=== PATIENT | female | born 2000 | race African-American/Black ===

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

== ENCOUNTER 2021-08-13 17:40 | Emergency (ER) | payer OTHER, SELFPAY ==
--- NOTE | ~2021-08-13 | CT_ITS ---
EXAMINATION: CT ABDOMEN AND PELVIS WITHOUT CONTRAST CLINICAL INFORMATION: Left lower quadrant abdominal pain. Evaluate for diverticulitis. COMPARISON: Pelvic ultrasound dated 11/24/2020. TECHNIQUE: Multidetector volumetric imaging was performed from the superior aspect of the liver through the pubic symphysis. Sagittal and coronal reformatted images were obtained on the technologist's workstation. This CT examination was performed using dose optimization techniques as appropriate, variously including the following: *Automated exposure control. *Adjustment of mA and/or kV according to patient size (this includes techniques or standardized protocols for targeted exams where dose is matched to indication/reason for exam; i.e. extremities or head). *Use of iterative reconstruction technique. DLP: 1047 mGy-cm FINDINGS: LUNG BASES: The visualized lung bases are unremarkable. LIVER, GALLBLADDER, AND BILIARY TREE: The liver is normal in size, shape, and attenuation. No focal hepatic lesion or biliary ductal dilatation is present. The gallbladder is unremarkable with no evidence of radiopaque gallstones, gallbladder wall thickening, or obvious pericholecystic inflammatory changes. PANCREAS: Unremarkable. SPLEEN: Unremarkable. ADRENAL GLANDS: Unremarkable. KIDNEYS AND URETERS: The kidneys are normal in size, shape, and attenuation. No hydronephrosis, hydroureter, or calculi seen. No perinephric stranding. BLADDER: Nondistended and unremarkable. GASTROINTESTINAL TRACT: There is minimal focal stranding anterior to the left lower quadrant descending colon (axial image 63/99, coronal image 29/80). No associated bowel wall thickening. Findings could represent mild epiploic appendagitis. No small or large bowel obstruction. Unremarkable appendix. PERITONEAL CAVITY: No intra-abdominal free air or free fluid. No intra-abdominal mass or organized fluid collection/abscess formation. ABDOMINAL WALL: No significant hernia is appreciated. LYMPH NODES: Normal. VASCULAR: Unremarkable. PELVIC VISCERA: There is a cyst anterior and inferior to the uterus which appears to arise from the left adnexa measuring 7.5 x 6.5 x 5.9 cm. This measures 9 Hounsfield units and is consistent with a simple cyst. OSSEOUS STRUCTURES: Unremarkable. CT/CT abdomen pelvis wo con IMPRESSION: 1. Tiny focus of stranding anterior to the left lower quadrant descending colon, which may represent minimal epiploic appendagitis. 2. No bowel wall thickening or associated inflammatory change. No small or large bowel obstruction. Unremarkable appendix. 3. Simple cyst anterior and inferior to the uterus which appears to arise from the left adnexa measuring up to 7.5 cm. This was not seen on the ultrasound dated 11/24/2020. [employer] FOUND[employer] DIRECTOR ultrasound could help further evaluate.
--- NOTE | ~2021-08-13 | US_ITS ---
EXAMINATION: US PELVIS CLINICAL INFORMATION: Large ovarian cyst COMPARISON: CT abdomen pelvis earlier today and prior pelvic ultrasound 11/24/2019 TECHNIQUE: Ultrasound of the pelvis is performed using both transabdominal and transvaginal transducers along with Doppler. Transvaginal imaging is performed due to inadequate visualization transabdominally. FINDINGS: Uterus: The uterus is anteverted and anteflexed, measuring 8.9 x 4.8 x 6.1 cm. The double wall endometrial thickness is 12 mm. The uterus is smooth in contour and has normal myometrial echogenicity. No visible fibroid. Adnexa: Both ovaries are visualized. There is normal color flow to the adnexa. There is no ovarian torsion. There is no pelvic ascites or fluid collection. Right ovary measures 3.7 x 1.3 x 1.7 cm for a volume of 4.3 mL and appears normal. Left ovary measures 7.5 x 6.2 x 6.7 cm for a volume of 163 mL which includes a large simple cyst measuring 6.8 x 6.0 x 6.0 cm. Trace pelvic fluid is noted adjacent to this cyst. US/US pelvic and transvaginal IMPRESSION: Large left ovarian probable benign 6.8 cm cyst. A follow-up ultrasound exam in 3-6 months
[2021-08-13 18:23] VITALS: BP 124/96; PULSE 105; RESP 20; TEMP 36.8; O2SAT 98; BMI 45.1
--- NOTE | 2021-08-13 20:22 | ED_ITS ---
HPI - Abdominal Pain General Chief Complaint: Abdominal Pain Stated Complaint: lower abd pain Time Seen by Provider: 08/13/21 20:21 Source: patient Mode of arrival: ambulatory Limitations: no limitations History of Present Illness HPI narrative: Patient history of left paraovarian cyst in ultrasound done 12/05 comes here for 1 month of left lower abdominal pain getting worse for last few days no nausea no vomiting no diarrhea no fever no urinary complaints pain get worse for pain patient ambulates or press on her left lower abdomen Related Data Previous Rx's Medication Instructions Recorded escitalopram oxalate 5 mg tablet 5 mg PO DAILY 30 Days #30 tab 07/21/21 ibuprofen 600 mg tablet 600 mg PO Q6H PRN #20 tab 08/14/21 Allergies Allergy/AdvReac Type Severity Reaction Status Date / Time No Known Allergies Allergy Verified 07/21/21 17:28 [No Known Allergies*] Review of Systems Review of Systems Yes all other systems are reviewed and are negative Physical Exam Vital Signs: Vital Signs: Last Vital Signs Temp 98.4 F 08/13/21 21:52 Pulse 93 08/14/21 00:34 Resp 16 08/14/21 00:34 BP 124/74 08/14/21 00:34 Pulse Ox 97 08/14/21 00:00 Body Mass Index 45.1 Appearance: Alert. Oriented X3. No acute distress. ENT: Pharynx normal. Oral Mucosa moist Neck: Normal inspection. Neck supple. CVS: Normal heart rate and rhythm. Pulses normal. Respiratory: No respiratory distress. Equal air entry bilateral, Abdomen: Soft, mild deep tenderness left lower quadrant, Bowel sounds are present, no mass palpable, no CVA tenderness Skin: Skin warm and dry. Normal skin color. Normal skin turgor. Extremities: No lower extremity edema. No calf tenderness Neuro: Oriented X 3. No motor deficit. MDM - Abdominal Pain MDM Narrative Medical decision making narrative: Patient with 6.8 cm simple left ovarian cyst no ovarian torsion per Doppler. Patient advised to follow-up with athletic instructor next week for further management Lab Data Attestation: I reviewed the patient's lab results. Result diagrams: 08/13/21 21:48 08/13/21 21:48 Labs: Lab Results 08/13/21 08/13/21 08/13/21 Range/Units 21:14 21:14 21:48 WBC 12.6 H (4.8-10.8) X10*3/uL RBC 4.80 (4.20-5.50) X10*6/uL Hgb 13.0 (12.0-16.0) g/dl Hct 38.6 (37.0-47.0) % MCV 80.4 (80.0-98.0) fL MCH 27.1 (27.0-33.0) pg MCHC 33.7 (31.0-35.0) g/dl RDW 14.5 (11.0-16.0) % Plt Count 324 (160-400) X10*3/uL MPV 9.4 (9.4-12.3) fL Immature Gran % (Auto) 0.2 (0.0-0.4) % Neut % (Auto) 63.7 (45-73) % Lymph % (Auto) 28.4 (20-40) % Parmer % (Auto) 6.4 (2-11) % Eos % (Auto) 0.9 (0-4) % Baso % (Auto) 0.4 (0-2) % Lymph # (Auto) 3.6 (1.2-4.9) X10*3/uL Parmer # (Auto) 0.8 (0.1-1.2) X10*3/uL Eos # (Auto) 0.1 (0.0-0.4) X10*3/uL Baso # (Auto) 0.1 (0.0-0.2) X10*3/uL Abs Immat Gran (auto) 0.03 (0.00-0.03) X10*3/uL Absolute Neuts (auto) 8.04 (2.0-8.3) x10*3/uL Absolute Nucleated RBC 0.000 (0.0-0.012) X10*3/uL Nucleated RBC % (auto) 0.0 (0.0-0.2) /100WBC Sodium (135-145) mmol/L Potassium (3.3-5.1) mmol/L Chloride (96-108) mmol/L Carbon Dioxide (22-29) mmol/L Anion Gap (12-20) BUN (9-16) mg/dL Creatinine (0.5-1.4) mg/dL Estim Creat Clear Calc Estimated GFR Random Glucose (60-115) mg/dL Calcium (8.4-10.2) mg/dL Urine Color YELLOW Urine Appearance CLEAR Urine pH 6.0 (5.0-8.0) Ur Specific [place] >= 1.030 H (1.005-1.025) Urine Protein NEG (NEG-TRACE) MG/DL Urine Glucose (UA) NEG (NEG) MG/DL Urine Ketones NEG (NEG) MG/DL Urine Blood NEG (NEG) Urine Nitrite NEG (NEG) Ur Leukocyte Esterase NEG (NEG) Urine Test NEGATIVE (NEGATIVE) 08/13/21 Range/Units 21:48 WBC (4.8-10.8) X10*3/uL RBC (4.20-5.50) X10*6/uL Hgb (12.0-16.0) g/dl Hct (37.0-47.0) % MCV (80.0-98.0) fL MCH (27.0-33.0) pg MCHC (31.0-35.0) g/dl RDW (11.0-16.0) % Plt Count (160-400) X10*3/uL MPV (9.4-12.3) fL Immature Gran % (Auto) (0.0-0.4) % Neut % (Auto) (45-73) % Lymph % (Auto) (20-40) % Parmer % (Auto) (2-11) % Eos % (Auto) (0-4) % Baso % (Auto) (0-2) % Lymph # (Auto) (1.2-4.9) X10*3/uL Parmer # (Auto) (0.1-1.2) X10*3/uL Eos # (Auto) (0.0-0.4) X10*3/uL Baso # (Auto) (0.0-0.2) X10*3/uL Abs Immat Gran (auto) (0.00-0.03) X10*3/uL Absolute Neuts (auto) (2.0-8.3) x10*3/uL Absolute Nucleated RBC (0.0-0.012) X10*3/uL Nucleated RBC % (auto) (0.0-0.2) /100WBC Sodium 141 (135-145) mmol/L Potassium 4.3 (3.3-5.1) mmol/L Chloride 108 (96-108) mmol/L Carbon Dioxide 26 (22-29) mmol/L Anion Gap 11 L (12-20) BUN 12 (9-16) mg/dL Creatinine 0.75 (0.5-1.4) mg/dL Estim Creat Clear Calc 163.1 Estimated GFR > 60 Random Glucose 89 (60-115) mg/dL Calcium 9.7 (8.4-10.2) mg/dL Urine Color Urine Appearance Urine pH (5.0-8.0) Ur Specific [place] (1.005-1.025) Urine Protein (NEG-TRACE) MG/DL Urine Glucose (UA) (NEG) MG/DL Urine Ketones (NEG) MG/DL Urine Blood (NEG) Urine Nitrite (NEG) Ur Leukocyte Esterase (NEG) Urine Test (NEGATIVE) Discharge Plan Discharge Clinical Impression: Ovarian cyst Qualifiers: Laterality: left Qualified Code(s): N83.202 - Unspecified ovarian cyst, left side Patient Disposition: Home, Self-Care Instructions: Ovarian Cyst (ED) Additional Instructions: Ibuprofen for pain Follow-up with athletic instructor for further management Report to the ER if sudden onset of increased pain Prescriptions: New ibuprofen 600 mg tablet 600 mg PO Q6H PRN (Reason: pain) Qty: 20 RF: 0 No Action escitalopram oxalate 5 mg tablet 5 mg PO DAILY 30 Days Qty: 30 RF: 0 Referrals: Rob Ramirez MD [Physician] - 1 week [facility] Past Medical History Medical History BMI 40.0-44.9, adult TERRI (generalized anxiety disorder) Mild recurrent major depression Morbid obesity with BMI of 45.0-49.9, adult Surgical History No pertinent past surgical history Family History Family History Father Diabetes mellitus Liver cancer Mother No problems noted. Sister Anemia Diabetes mellitus Sister No problems noted. Brother No problems noted. Son No problems noted. Social History Social History Housing: Apartment Alcohol intake: never Patient Tobacco Use Status: Never used Tobacco e-Cigarette/Vaping Use: Never Used Second Hand Smoke Exposure: No Advance Directives: No Advance Directives Information Provided: No Patient : No service: No Current occupational status: employed Current occupational exposures/hazards: No
[2021-08-13] MEDS: Ibuprofen 600 MG TABLET PO (21:12)
[2021-08-13 21:21] LABS: Appearance Urine CLEAR; Color Urine YELLOW; Glucose Urine UA NEG (NEG); Leukocyte Esterase Urine NEG (NEG); Nitrite Urine NEG (NEG); Specific Gravity - Urine >= 1.030 (1.005-1.025); Urine Blood NEG (NEG); Urine Ketones NEG (NEG); Urine Protein NEG (NEG-TRACE)
[2021-08-13 21:29] LABS: UPreg QC Valid YES; Urine Pregnancy NEGATIVE (NEGATIVE)
[2021-08-13 21:52] VITALS: BP 133/67; PULSE 91; RESP 14; TEMP 36.9; O2SAT 98
[2021-08-13 21:53] LABS: Basophils Absolute Auto 0.1 X10*3/uL (0.0-0.2); Basophils Percent Auto 0.4 % (0-2); Eosinophils Absolute Auto 0.1 X10*3/uL (0.0-0.4); Eosinophils Percent Auto 0.9 % (0-4); Hematocrit 38.6 % (37.0-47.0); Imm Gran Abs Auto 0.03 X10*3/uL (0.00-0.03); Imm Gran Pct Auto 0.2 % (0.0-0.4); Lymphocytes Absolute Auto 3.6 X10*3/uL (1.2-4.9); Lymphocytes Percent Auto 28.4 % (20-40); MANUAL DIFF FLAG NO; Mean Corpuscular HGB Conc 33.7 g/dl (31.0-35.0); Mean Corpuscular Hemoglobin 27.1 pg (27.0-33.0); Mean Corpuscular Volume 80.4 fL (80.0-98.0); Mean Platelet Volume 9.4 fL (9.4-12.3); Monocytes Absolute Auto 0.8 X10*3/uL (0.1-1.2); Monocytes Percent Auto 6.4 % (2-11); Neutrophils Absolute Auto 8.04 x10*3/uL (2.0-8.3); Neutrophils Percent Auto 63.7 % (45-73); Platelet Count 324 X10*3/uL (160-400); Red Cell Distribution Width 14.5 % (11.0-16.0); White Blood Count 12.6 X10*3/uL (4.8-10.8)
[2021-08-13 22:09] LABS: Anion Gap 11 (12-20); Blood Urea Nitrogen 12 mg/dL (9-16); Calcium 9.7 mg/dL (8.4-10.2); Carbon Dioxide 26 mmol/L (22-29); Chloride 108 mmol/L (96-108); Creatinine Clr Calc Pharmacy 163.1; Estimated Glomerular Filt Rate > 60; Glucose Random 89 mg/dL (60-115); Potassium 4.3 mmol/L (3.3-5.1); Sodium 141 mmol/L (135-145)
[2021-08-14] VITALS: BP 124/74; PULSE 92; RESP 16; O2SAT 97
[2021-08-14 00:34] VITALS: BP 124/74; PULSE 93; RESP 16
== END 2021-08-14 00:54 | disposition home or self-care (01) ==
PROVIDERS: Emergency Provider Internal Medicine; PCP Internal Medicine
DX: N83.202 Unspecified ovarian cyst, left side (principal); Z79.899 Other long term (current) drug therapy
CPT/HCPCS: 36415; 74176; 76830; 76856; 80048; 81003; 81025; 85025; 99284

== ENCOUNTER → 2021-09-14 10:51 | Outpatient (BNVA) | payer OTHER, SELFPAY | PROVIDERS: PCP Internal Medicine; Visit Provider Physician Assistant ==

== ENCOUNTER 2022-12-06 11:17 | Outpatient (REF) | payer OTHER, SELFPAY ==
[2022-12-07 10:02] LABS: CT PCR DETECTED (Not Detect.); NG PCR NOT DETECTED (Not Detect.)
[2022-12-07 13:30] LABS: BV Int Neg Control Negative (Negative); BV Int Pos Control Positive (Positive)
== END 2022-12-06 11:18 | disposition home or self-care (01) ==
LOC: HO.LNP 11:17
PROVIDERS: PCP Internal Medicine; Visit Provider Advanced Practice Midwife
DX: Z01.419 Encounter for gynecological examination (general) (routine) without abnormal findings (principal); Z11.3 Encounter for screening for infections with a predominantly sexual mode of transmission
CPT/HCPCS: 0353U; 87480; 87510; 87660; 88142

== ENCOUNTER 2022-12-07 12:49 | Outpatient (REF) | payer OTHER, SELFPAY ==
[2022-12-07 13:54] LABS: HCG Quantitative < 2 mIU/mL
[2022-12-08 05:39] LABS: Syphilis Screen Nonreactive (Nonreactive)
[2022-12-08 06:50] LABS: HBsAGNum1 0.35 S/CO (0.00-0.99); HIV AB/AG Nonreactive (Nonreactive); HIV Num 1 0.08 S/CO (0.00-0.99); Hepatitis B Surface Antigen Negative (Negative); ~HepC Num1 0.08 S/CO (0.00-0.79); ~Hepatitis C Antibody Nonreactive (Nonreactive)
== END 2022-12-07 12:50 | disposition home or self-care (01) ==
LOC: HO.LAB 12:49
PROVIDERS: PCP Internal Medicine; Visit Provider Advanced Practice Midwife
DX: Z11.4 Encounter for screening for human immunodeficiency virus [HIV] (principal); Z11.3 Encounter for screening for infections with a predominantly sexual mode of transmission; A74.9 Chlamydial infection, unspecified; F17.200 Nicotine dependence, unspecified, uncomplicated; Z63.79 Other stressful life events affecting family and household
CPT/HCPCS: 36415; 84702; 86780; 86803; 87340; 87389

== ENCOUNTER 2024-05-20 12:26 | Outpatient (AMB) | payer OTHER, SELFPAY ==
[2024-05-20 12:40] VITALS: BP 118/88; PULSE 85; O2SAT 99; BMI 46.3
--- NOTE | 2024-05-20 12:40 | A.OFFPC_ITS ---
Vital Signs 05/20/24 12:40 Height 5 ft 6 in Weight 287 lb BMI 46.3 BP 118/88 Blood Pressure Location Lt brachial Position Sitting Pulse 85 Pulse Source Pulse Oximeter Pulse Oximetry (%) 99 Oxygen Delivery Method Room Air Intake Visit Reasons: [facility] BP Android Developer Required: No Accompanied by: Self / Same As Patient Allergies No Known Allergies [No Known Allergies*] Allergy (Verified 05/20/24 12:57) Medication List - Last Reconciled 05/20/24 by Gaby Elizondo MD No Known Home Meds Tobacco use date assessed: 05/20/24 Dental Screening Dental Screen Date: 05/20/24 Did you have a dental visit in the last 12 months?: Yes Did you have a dental problem in the last 6 months where you did not have access to dental care?: No Was dental information given to patient?: Patient has dentist HPI HPI Comments History of Present Illness Details This is a 23-year-old female with mild recurrent major depression and morbid obesity that comes today complaining of tachycardia that happens occasi onally. She went to ER due to this matter and had heart rate of 133. I will order EKG and Holter monitor. At the moment she has a heart rate of 85 at rest. Depression is in remission. She is morbidly obese with a BMI of 46.3 and was advised to do diet and exercise to reach BMI goal less than 30. [facility] Medical History (Updated 05/20/24 @ 13:06 by Gaby Elizondo MD) TERRI (generalized anxiety disorder) Mild recurrent major depression Morbid obesity with BMI of 45.0-49.9, adult BMI 40.0-44.9, adult Surgical History History of wisdom tooth extraction Family History Father Diabetes mellitus Liver cancer Mother No problems noted. Sister Anemia Diabetes mellitus Sister No problems noted. Brother No problems noted. Son No problems noted. Social History Housing: Apartment Alcohol intake: never Patient Tobacco Use Status: Never used Tobacco e-Cigarette/Vaping Use: Never Used Second Hand Smoke Exposure: No service: No Current occupational status: unemployed Cognitive needs: No Hearing needs: No Vision needs: No Female Reproductive History Menstrual Age of Menarche: 14 Questionnaire PHQ-9 Over the last 2 weeks, how often have you been bothered by any of the following problems? 1. Little interest or pleasure in doing things: not at all 2. Feeling down, depressed, or hopeless: more than half the days 3. Trouble falling or staying asleep, or sleeping too much: not at all 4. Feeling tired or having little energy: not at all 5. Poor appetite or overeating: not at all 6. Feeling bad about yourself - or that you are a failure or have let yourself or your family down: not at all 7. Trouble concentrating on things, such as reading the newspaper or watching television: not at all 8. Moving or speaking so slowly that other people could have noticed. Or the opposite - being so fidgety or restless that you have been moving around a lot more than usual: not at all 9. Thoughts that you would be better off or of hurting yourself in some way: not at all Total score: 2 Depression Screening Interpretation: Positive Depression Screening Follow-up: Existing condition and Follow-up Visit Requested Depression Screening Done: Yes 91182 - PHQ-9 Billing: Yes Source: Developed by Drs. Yaron Bear, Sara Diaz, Umberto Sullivan and colleagues, with an educational natali from [employer]. Thrive Questionnaire Date Thrive assessed: 05/20/24 I am a: Patient What is your living situation today?: I have a steady place to live Within the past 12 months, did the food you bought not last and you didn't have the money to get more?: Never true Within the past 12 months, did you worry whether your food would run out before you got money to buy more?: Never true Do you have trouble paying for medicines?: No Do you have trouble getting transportation to medical appointments?: No Do you have trouble paying your heating and electricity bill?: No Do you have trouble taking care of your child, family member or friend?: No Do you have trouble with day-to-day activities such as bathing, preparing meals, shopping, managing finances, etc.?: No Are you currently unemployed and looking for a job?: No Are you interested in more education?: No Please select the resources that you would like help with: None Currently or been in a relationship where the following occur: No concerns reported THRIVE Score: 0 TERRI-7 AMB Questionnaire TERRI-7 Date TERRI - 7 assessed: 05/20/24 Feeling nervous, anxious, or on edge: 1 = Several days Not being able to stop or control worryin = Not at all Worrying too much about different things: 0 = Not at all Trouble relaxin = Not at all Being so restless that it is hard to sit still: 0 = Not at all Becoming easily annoyed or irritable: 0 = Not at all Feeling afraid as if something awful might happen: 0 = Not at all Total TERRI-7 score (0-4 normal; 5-9 mild; 10-14 moderate; 15-21 severe): 1 Source: Developed by Drs. Yaron Bear, Sara Diaz, Umberto Sullivan and colleagues, with an educational natali from [employer]. TERRI-7 Assessment Billing TERRI-7 Assessment Tool: TERRI-7 Assessment 59668 Review of Systems Const All systems reviewed & are unremarkable except as noted in HPI and below Card Denies chest pain at rest, Denies chest pain with activity, Denies edema, Denies irregular heart rhythm, Denies claudication, Denies dyspnea, Denies dyspnea on exertion, Denies orthopnea, Denies paroxysmal nocturnal dyspnea and Denies slow heart rate Resp Denies cough, Denies dyspnea and Denies dyspnea on exertion GI Denies abdominal pain, Denies change in bowel habits, Denies excessive flatus, Denies nausea and Denies vomiting Denies urinary incontinence, Denies urinary hesitancy and Denies urinary urgency Physical exam (Primary Care) Vital Signs: Last Vital Signs BP 118/88 05/20/24 12:40 BMI result Body Mass Index 46.3 BMI Assessment/Plan discussion: High BMI High, discussed plan: lifestyle, weight reduction, dietary and physical activity Tobacco/Smoking Status: Tobacco use Status Tobacco use date assessed 05/20/24 05/20/24 12:47 Patient Tobacco Use Status Never used Tobacco 05/20/24 12:47 e-Cigarette/Vaping Use Never Used 05/20/24 12:47 PHQ-9: PHQ-9 Score PHQ-9: Total score 2 05/20/24 12:47 Depression Screening Interpretation: Positive Depression Screening Follow-up: Existing condition and Follow-up Visit Requested Thrive Assessment: Date of Thrive Assessment Date Thrive assessed 05/20/24 05/20/24 12:48 Currently or been in a relationship where the following occur: No concerns reported Resp Effort & Inspection: normal respiratory effort Auscultation: clear to auscultation bilaterally Cardio Jugular venous distension: no JVD Rate: regular rate Rhythm: regular rhythm Heart sounds: S1 normal heart sound present and S2 normal heart sound present Extrem General: Yes full ROM Assessment and Plan Assessment & Plan (1) Sinus tachycardia: Code(s): R00.0 - Tachycardia, unspecified Plan: EKG and Holter monitor ordered. (2) Morbid obesity with BMI of 45.0-49.9, adult: Code(s): E66.01 - Morbid (severe) obesity due to excess calories; Z68.42 - Body mass index [BMI] 45.0-49.9, adult Plan: Start diet and exercise. BMI goal is less than 30. (3) Mild recurrent major depression: Code(s): F33.0 - Major depressive disorder, recurrent, mild Plan: In remission. Orders: Orders ECG 12 lead EKG Today R00.0 - Tachycardia, unspecified ECG holter monitor 24 hour Today R00.0 - Tachycardia, unspecified Coding Level of Care Code Est Pt Level 3 (05636) Complex EM visit Add On G2211 Diagnoses Sinus tachycardia R00.0 Morbid obesity with BMI of 45.0-49.9, adult E66.01; Z68.42 Mild recurrent major depression F33.0 Additional Codes TERRI-7 Assessment Billing - TERRI-7 Assessment Tool: TERRI-7 Assessment 70218 ([id number]) Time Spent (min) 19
== END 2024-05-20 13:06 | disposition home or self-care (01) ==
PROVIDERS: PCP Internal Medicine; Visit Provider Internal Medicine
DX: R00.0 Tachycardia, unspecified (principal); E66.01 Morbid (severe) obesity due to excess calories; Z68.42 Body mass index [BMI] 45.0-49.9, adult; F33.0 Major depressive disorder, recurrent, mild
CPT/HCPCS: 99213; G2211

== ENCOUNTER → 2024-06-10 09:55 | Outpatient (REF) | payer OTHER, SELFPAY ==
--- NOTE | 2024-06-10 09:58 | ECG_ITS ---
Test Reason : TACHYCARDIA Blood Pressure : / mmHG Vent. Rate : 091 BPM Atrial Rate : 091 BPM P-R Int : 144 ms QRS Dur : 086 ms QT Int : 350 ms P-R-T Axes : 011 035 -17 degrees QTc Int : 430 ms Normal sinus rhythm Normal ECG When compared with ECG of 08-NOV-2020 11:24, No significant change was found Referred By: Gaby Elizondo Electronically Signed By:FLACO JUSTIN
--- NOTE | 2024-06-10 09:58 | HM_ITS ---
* Total monitoring time 1 day. * Underlying rhythm is sinus with an average rate of 91/Min. About 36% of the time, rate > 100/Min. * Rare supraventricular ectopy. * No significant pauses or AV blocks. * No patient markers or diary events. MTDD
== END ==
LOC: HO.CARD 09:55
PROVIDERS: PCP Internal Medicine; Visit Provider Internal Medicine
DX: R00.0 Tachycardia, unspecified (principal)
CPT/HCPCS: 93005; 93225

== ENCOUNTER → 2024-06-10 09:58 | Outpatient (BNV) | payer OTHER, SELFPAY | PROVIDERS: PCP Internal Medicine; Visit Provider Internal Medicine | DX: I47.10 Supraventricular tachycardia, unspecified (principal) | CPT/HCPCS: 93227 ==

== ENCOUNTER 2025-03-11 16:59 | Outpatient (AMB) | payer OTHER, SELFPAY ==
--- NOTE | 2025-03-11 17:00 | A.OFFPC_ITS ---
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: No Accompanied by: Self / Same As Patient Allergies No Known Allergies [No Known Allergies*] Allergy (Verified 03/11/25 17:12) Medication List - Last Reconciled 03/11/25 by Gaby Elizondo MD No Known Home Meds Tobacco use date assessed: 03/11/25 Dental Screening Dental Screen Date: 03/11/25 Did you have a dental visit in the last 12 months?: Yes Did you have a dental problem in the last 6 months where you did not have access to dental care?: No Was dental information given to patient?: Patient has dentist HPI HPI Comments History of Present Illness Details The patient is a 24-year-old female presenting with an annual physical examination. She reports experiencing depression and anxiety. She is not currently under the care of a mental health professional but has been in contact with a program called [facility] to assist her in accessing further mental health services. The patient expresses concerns about her weight, noting a recent gain and previous involvement in a weight management program which she discontinued due to apprehension about surgical procedures. She is interested in revisiting weight management options. Her medical history includes a wisdom tooth extraction and a normal Pap smear in 2022. She denies any medication allergies and reports occasional alcohol consumption, primarily in the form of shots. Her family history includes her father's at age 62 from liver cancer and diabetes, and her mother is alive with a possible history of knee arthritis. - Administered Tdap vaccine - Recommended fasting blood work for cho lesterol, glucose, renal and hepatic function - Discussed referral to weight managemen t program at [facility] for obesity management [facility] Medical History (Updated 03/11/25 @ 17:32 by Gaby Elizondo MD) Morbid (severe) obesity due to excess calories TERRI (generalized anxiety disorder) Mild recurrent major depression Morbid obesity with BMI of 45.0-49.9, adult BMI 40.0-44.9, adult Surgical History History of wisdom tooth extraction Family History Father Diabetes mellitus Liver cancer Mother No problems noted. Sister Anemia Diabetes mellitus Sister No problems noted. Brother No problems noted. Son No problems noted. Social History (Updated 03/11/25 @ 17:18 by Gaby Elizondo MD) Housing: Apartment Alcohol intake: current Alcohol intake frequency: a few times a month Alcohol type: hard liquor Patient Tobacco Use Status: Never used Tobacco e-Cigarette/Vaping Use: Never Used Second Hand Smoke Exposure: No service: No Current occupational status: unemployed Cognitive needs: No Hearing needs: No Vision needs: No Female Reproductive History Menstrual Age of Menarche: 14 Questionnaire PHQ-9 Over the last 2 weeks, how often have you been bothered by any of the following problems? 1. Little interest or pleasure in doing things: several days 2. Feeling down, depressed, or hopeless: several days 3. Trouble falling or staying asleep, or sleeping too much: nearly every day 4. Feeling tired or having little energy: nearly every day 5. Poor appetite or overeating: nearly every day 6. Feeling bad about yourself - or that you are a failure or have let yourself or your family down: nearly every day 7. Trouble concentrating on things, such as reading the newspaper or watching television: not at all 8. Moving or speaking so slowly that other people could have noticed. Or the opposite - being so fidgety or restless that you have been moving around a lot more than usual: not at all 9. Thoughts that you would be better off or of hurting yourself in some way: not at all Total score: 14 Depression Screening Interpretation: Positive (no suicidal thoughts) Depression Screening Follow-up: Existing condition and Follow-up Visit Requested Depression Screening Done: Yes 93666 - PHQ-9 Billing: Yes Source: Developed by Drs. Yaron Bear, Sara Diaz, Umberto Sullivan and colleagues, with an educational natali from [employer]. Thrive Questionnaire Date Thrive assessed: 03/11/25 I am a: Patient What is your living situation today?: I have a steady place to live Within the past 12 months, did the food you bought not last and you didn't have the money to get more?: Never true Within the past 12 months, did you worry whether your food would run out before you got money to buy more?: Never true Do you have trouble paying for medicines?: No Do you have trouble getting transportation to medical appointments?: No Do you have trouble paying your heating and electricity bill?: No Do you have trouble taking care of your child, family member or friend?: No Do you have trouble with day-to-day activities such as bathing, preparing meals, shopping, managing finances, etc.?: No Are you currently unemployed and looking for a job?: No Are you interested in more education?: No Please select the resources that you would like help with: None Currently or been in a relationship where the following occur: No concerns reported THRIVE Score: 0 AUDIT C Alcohol Use Questionnaire (AUDIT-C) 1. How often do you have a drink containing alcohol?: Monthly or less 2. How many drinks containing alcohol do you have on a typical day when you are drinking?: 5 or 6 3. How often do you have six or more drinks on one occasion?: Monthly Total Score: 5 TERRI-7 AMB Questionnaire TERRI-7 Date TERRI - 7 assessed: 03/11/25 Feeling nervous, anxious, or on edge: 3 = Nearly every day Not being able to stop or control worryin = More than half the days Worrying too much about different things: 1 = Several days Trouble relaxin = Several days Being so restless that it is hard to sit still: 1 = Several days Becoming easily annoyed or irritable: 1 = Several days Feeling afraid as if something awful might happen: 0 = Not at all Total TERRI-7 score (0-4 normal; 5-9 mild; 10-14 moderate; 15-21 severe): 9 Source: Developed by Drs. Yaron Bear, Sara Diaz, Umberto Sullivan and colleagues, with an educational natali from [employer]. TERRI-7 Assessment Billing TERRI-7 Assessment Tool: TERRI-7 Assessment 57384 Review of Systems Const All systems reviewed & are unremarkable except as noted in HPI and below Card Denies chest pain at rest, Denies chest pain with activity, Denies edema, Denies irregular heart rhythm, Denies claudication, Denies dyspnea, Denies dyspnea on exertion, Denies orthopnea, Denies paroxysmal nocturnal dyspnea and Denies slow heart rate Resp Denies cough, Denies dyspnea and Denies dyspnea on exertion GI Denies abdominal pain, Denies change in bowel habits, Denies excessive flatus, Denies nausea and Denies vomiting Neuro Denies lack of coordination Physical exam (Primary Care) Vital Signs: Last Vital Signs BP 138/90 H 03/11/25 17:03 BMI result Body Mass Index 49.4 Tobacco/Smoking Status: Tobacco use Status Tobacco use date assessed 03/11/25 03/11/25 17:09 Patient Tobacco Use Status Never used Tobacco 03/11/25 17:18 e-Cigarette/Vaping Use Never Used 03/11/25 17:18 PHQ-9: PHQ-9 Score PHQ-9: Total score 14 03/11/25 17:19 Depression Screening Interpretation: Positive (no suicidal thoughts) Depression Screening Follow-up: Existing condition and Follow-up Visit Requested Thrive Assessment: Date of Thrive Assessment Date Thrive assessed 03/11/25 03/11/25 17:09 Currently or been in a relationship where the following occur: No concerns repo rted HENMT Head: Yes normal to inspection, Yes normocephalic and Yes atraumatic Ears: external ears normal Eyes General: appearance normal, both eyes and all related structures Eyelids: Yes eyelids normal Conjunctivae: conjunctivae normal Neck Neck: Yes normal visual inspection and Yes supple Resp Effort & Inspection: normal respiratory effort Auscultation: clear to auscultation bilaterally Cardio Jugular venous distension: no JVD Rate: regular rate Rhythm: regular rhythm Heart sounds: S1 normal heart sound present and S2 normal heart sound present GI Inspection: Yes normal to inspection Palpation (GI): Soft to palpation and nontender Auscultation: normal bowel sounds Skin General skin exam: no rashes or lesions noted Neuro General: no focal motor deficits Extrem General: Yes full ROM Psych Appearance: grossly normal Immunizations Boostrix Tdap 2.5 Lf unit-8 mcg-5 Lf/0.5 mL intramuscular syringe Performing Provider: Gaby Elizondo MD Performing Location: [facility] Administered by: RAYSHAWN Man on 03/11/25 17:29 Dose Route Admin Location Dispensed Lot Number Expiration Date [facility] Retail Operations Specialist 0.5 mL IM Left Deltoid 0.5 mL [id number] 06/10/27 [id number] [employer] VIS Given Date VIS Provided VIS Publication Date 03/11/25 Single Vaccine 24 Eligibility Eligibility Date Funding Source Not [facility] Eligible 03/11/25 Private Coding Level of Care Code Est Pt Level 3 (99374) Est Pt Prev Care 18-39y(22411) Diagnoses Physical exam Z00.00 Morbid obesity with BMI of 45.0-49.9, adult E66.01; Z68.42 Mild recurrent major depression F33.0 Additional Codes PHQ-9 - 10012 - PHQ-9 Billing: Yes ([id number]) TERRI-7 Assessment Billing - TERRI-7 Assessment Tool: TERRI-7 Assessment 68029 ([id number]) Time Spent (min) 32 Assessment & Plan Assessment & Plan (1) Physical exam: Code(s): Z00.00 - Encounter for general adult medical examination without abnormal findings Category: Medical (2) Morbid obesity with BMI of 45.0-49.9, adult: Code(s): E66.01 - Morbid (severe) obesity due to excess calories; Z68.42 - Body mass index [BMI] 45.0-49.9, adult Category: Medical (3) Mild recurrent major depression: Code(s): F33.0 - Major depressive disorder, recurrent, mild Category: Medical Plan During this visit, I addressed the patient's annual physical examination and management of depression, anxiety, and obesity. I discussed her current engagement with [facility] to facilitate mental health support and stressed the importance of professional help. For her weight concerns, I suggested a referral to a weight management program at [facility] to explore non-surgical options. I recommended fasting blood work to evaluate cholesterol, glucose, renal, and hepatic function. The Tdap vaccine was administered as part of routine health maintenance. Patient was informed and verbally consented to the use of an ambient scribe for clinic note documentation during this visit. I discussed with the patient her current symptoms of depression and anxiety, emphasizing the importance of engaging with mental health professionals. We talked about her involvement with [facility] and the potential for entry into [facility] for further support. I outlined the benefits of professional mental health care and the availability of resources. Regarding her obesity, I proposed a referral to a weight management program and detailed the options available, including non-surgical and pharmacological interventions. We discussed the need for fasting blood work to monitor her general health and the administration of the Tdap vaccine. I provided education on the importance of health maintenance and encouraged follow-up with weight management services. Orders: Orders TDaP Immunization Today Z23 - Encounter for immunization Comprehensive [place]. Panel Fast Today Z00.00 - Encounter for general adult medical examination without abnormal findings Lipid Panel Today Z00.00 - Encounter for general adult medical examination without abnormal findings Referrals Medical Weight Management Referral E66.01 - Morbid (severe) obesity due to excess calories, Z68.42 - Body mass index [BMI] 45.0-49.9, adult Patient Instructions: - Continue pursuing mental health support through [facility] and [facility] - Follow up with the weight management program at [facility] or [facility] - Complete fasting blood work as recommended - Return for routine health maintenance and monitoring as advised
[2025-03-11 17:03] VITALS: BP 138/90; BMI 49.4
== END 2025-03-11 17:28 | disposition home or self-care (01) ==
LOC: HO.HMCH 16:59
PROVIDERS: PCP Internal Medicine; Visit Provider Internal Medicine
DX: Z00.00 Encounter for general adult medical examination without abnormal findings (principal); E66.01 Morbid (severe) obesity due to excess calories; Z68.42 Body mass index [BMI] 45.0-49.9, adult; F33.0 Major depressive disorder, recurrent, mild; Z23 Encounter for immunization

== ENCOUNTER → 2025-03-11 16:59 | Outpatient (BNVA) | payer OTHER, SELFPAY | PROVIDERS: PCP Internal Medicine; Visit Provider Internal Medicine | DX: Z00.00 Encounter for general adult medical examination without abnormal findings (principal); F33.0 Major depressive disorder, recurrent, mild; F41.9 Anxiety disorder, unspecified; E66.01 Morbid (severe) obesity due to excess calories; Z68.42 Body mass index [BMI] 45.0-49.9, adult | CPT/HCPCS: 90471; 90715; 96127; 99212; 99395 ==

== ENCOUNTER 2025-09-22 10:36 | Emergency (ER) | payer OTHER, SELFPAY ==
--- NOTE | ~2025-09-22 | US_ITS ---
EXAMINATION: US DIAGNOSTIC ULTRASOUND BREAST, LEFT CLINICAL INFORMATION: Rule out abscess. Redness and swelling left breast 7-9:00 axis, approximately 8 cm from the nipple. COMPARISON: None relevant. TECHNIQUE: Grayscale and color Doppler ultrasound imaging of the LEFT breast was performed in the region of concern spanning the 7-9 o'clock axis, approximately 8 cm from the nipple, in the region of redness and swelling. FINDINGS: There is dermal thickening. Within the thickened dermis, there is an oval fluid collection with surrounding hyperemia on color Doppler imaging, measuring 1.5 x 0.6 x 1.3 cm. This correlates with the region of redness and swelling. This is consistent with a small intradermal abscess. US/US breast LT complete IMPRESSION: Small intradermal abscess measuring 1.5 x 0.6 x 1.3 cm in the left breast, 7-9:00 axis, 8 cm from the nipple. ASSESSMENT: Category 2: Benign RECOMMENDATION: Clinical management. Electronically signed by: Terry Lee MD 09/22/2025 12:49 PM [facility]
[2025-09-22 11:22] VITALS: BP 170/81; PULSE 114; RESP 18; TEMP 36.8; O2SAT 98; BMI 49.1
--- NOTE | 2025-09-22 11:25 | ED_ITS ---
HPI - General Adult General Chief complaint: Skin/Abscess/Foreign Body Stated complaint: General Medical Time Seen by Provider: 09/22/25 13:28 Source: patient Mode of arrival: ambulatory Limitations: no limitations History of Present Illness ED Provider: Zay Frausto HPI narrative: 25 yold female presents to the ED for left breast area of redness and mass. Patient denies breast-feeding, recent trauma to the breasts, bit by insect, fever or chills. Related Data Previous Rx's ?Medication ?Instructions ?Recorded cephalexin 500 mg capsule 500 mg PO QID 7 days #28 cap s 09/22/25 doxycycline hyclate 100 mg capsule 100 mg PO BID #14 c aps 09/22/25 naproxen 500 mg tablet 500 mg PO BID PRN pain #14 t abs 09/22/25 Allergies Allergy/AdvReac Type Severity Reaction Status Date / Time No Known Allergies (No Known Allergy Verified 09/22/25 11:24 Allergies*) Review of Systems 2 Review of Systems: left breast area of redness/mass Yes all other systems are reviewed and are negative PMF Past Medical History Medical History (Updated 09/23/25 @ 00:01 by Rosa Jameson) Morbid (severe) obesity due to excess calories TERRI (generalized anxiety disorder) Mild recurrent major depression Morbid obesity with BMI of 45.0-49.9, adult BMI 40.0-44.9, adult Surgical History History of wisdom tooth extraction Family History Family History Father Diabetes mellitus Liver cancer Mother No problems noted. Sister Anemia Diabetes mellitus Sister No problems noted. Brother No problems noted. Son No problems noted. Social History Social History (Updated 03/11/25 @ 17:18 by Gaby Elizondo MD) Housing: Apartment Alcohol intake: current Alcohol intake frequency: a few times a month Alcohol type: hard liquor Patient Tobacco Use Status: Never used Tobacco e-Cigarette/Vaping Use: Never Used Second Hand Smoke Exposure: No service: No Current occupational status: unemployed Cognitive needs: No Hearing needs: No Vision needs: No Physical Exam ED Vital Signs: Vital Signs - 24 hr 09/22/25 11:22 Temperature 98.2 F Pulse Rate 114 H Respiratory Rate 18 Blood Pressure 170/81 H Pulse Oximetry 98 Oxygen Delivery Method Room Air BMI result Body Mass Index 49.1 Const General: cooperative, healthy appearing, comfortable, no acute distress, well developed, alert, awake and Physically active Orientation/consciousness: patient oriented x3 [facility] Head: Yes normal to inspection, Yes No palpable skull fracture present, Yes normocephalic and Yes atraumatic Ears: hearing grossly normal bilaterally, external ears normal, TM's normal bilaterally, TM normal on the right, TM normal on the left and EAC's normal Face and sinus: Yes normal facial exam, Yes sinuses nontender and Yes face symmetric Throat: Yes posterior oropharynx normal, Yes tonsils normal and Yes uvula midline Eyes General: appearance normal, both eyes and all related structures Neck Neck: Yes normal visual inspection, Yes full ROM, Yes no lymphadenopathy, Yes no meningeal signs, Yes trachea midline, Yes supple, No anterior neck swelling and No tender Chest Chest palpation & inspection: normal inspection of the chest and normal palpation of entire chest wall Chest/axillae images: 2 1. small area of mass that is tender and erythematous without much fluctulance. Negative for breast swelling, nipple discharge, necrosis, red streaks, or hotness. Resp Effort & Inspection: normal respiratory effort and able to speak in complete sentences Auscultation: clear to auscultation bilaterally Cardio Jugular venous distension: no JVD Heart sounds: S1 normal heart sound present and S2 normal heart sound present GI Inspection: Yes normal to inspection Palpation (GI): not firm, nontender and no guarding General: Yes no CVA tenderness Back/Spine/Pelvis Back: no CVA tenderness and No back tenderness Skin General skin exam: no rashes or lesions noted, elasticity normal and turgor normal Neuro General: patient oriented x3, gait normal, tone normal, moves all extremities, Normal light touch and pain sensation, no meningeal signs, no focal motor deficits, CN's II-XI intact bilaterally and normal sensation to monofilament Extrem General: Yes normal to inspection, Yes full ROM and Yes capillary refill normal Psych Appearance: grossly normal, well kempt and not disheveled Course Course Course Narrative: RME: 25-year-old female presents to ED for left breast mass redness swelling and tenderness for the past 2 days. Patient denies any trauma, breast-feeding, being bit in, or chills. Patient denies any shortness of breath. Labs ultrasound ordered. Medical Decision Making Medical Decision Making [facility] Narrative: [age] year female presents to ED for painful left small erythematous mass on breast. Ultrasound shows small abscess. As per exam and ultrasound not to be drained. Patient is educated on oral antibiotics with warm compress 4 to 5 times a day. Patient explained worrisome signs informed return to the ED immediately. Patient is not breast-feeding. Not suspecting mastitis, sepsis, breast cancer, or any other life threatening etiology. Differential Diagnosis Differential Diagnoses: The differential diagnosis associated with the presentation includes (Abscess, cellulitis) Admission/Observation Consideration of admission/observation: Escalation of care including admission/observation considered Lab Data [facility] Lab Attestation statement: I reviewed the patient's lab results. 09/22/25 11:44 09/22/25 11:44 Labs: Lab Results 09/22/25 Range/Units 11:44 WBC 11.0 H (4.8-10.8) X10*3/uL RBC 4.82 (4.20-5.50) X10*6/uL Hgb 11.9 L (12.0-16.0) g/dl Hct 36.8 L (37.0-47.0) % MCV 76.3 L (80.0-98.0) fL MCH 24.7 L (27.0-33.0) pg MCHC 32.3 (31.0-35.0) g/dl RDW 15.7 (11.0-16.0) % Plt Count 406 H D (160-400) X10*3/uL MPV 9.4 (9.4-12.3) fL Immature Gran % (Auto) 0.3 (0.0-0.4) % Neut % (Auto) 66.1 (45-73) % Lymph % (Auto) 26.3 (20-40) % Grady % (Auto) 5.1 (2-11) % Eos % (Auto) 1.6 (0-4) % Baso % (Auto) 0.6 (0-2) % Lymph # (Auto) 2.9 (1.2-4.9) X10*3/uL Grady # (Auto) 0.6 (0.1-1.2) X10*3/uL Eos # (Auto) 0.2 (0.0-0.4) X10*3/uL Baso # (Auto) 0.1 (0.0-0.2) X10*3/uL Abs Immat Gran (auto) 0.03 (0.00-0.03) X10*3/uL Absolute Neuts (auto) 7.3 (2.0-8.3) x10*3/uL Absolute Nucleated RBC 0.000 (0.0-0.012) X10*3/uL Nucleated RBC % (auto) 0.0 (0.0-0.2) /100WBC Sodium 143 (135-145) mmol/L Potassium 3.7 (3.3-5.1) mmol/L Chloride 108 (96-108) mmol/L Carbon Dioxide 28 (22-29) mmol/L Anion Gap 11 L (12-20) BUN 10 (9-16) mg/dL Creatinine 0.77 (0.5-1.4) mg/dL Estim Creat Clear Calc 161.4 Estimated GFR > 60 Random Glucose 100 (60-115) mg/dL Calcium 9.5 (8.4-10.2) mg/dL Total Bilirubin 0.4 (0.0-1.0) mg/dL AST 25 (5-31) U/L ALT 40 H (0-31) U/L Alkaline Phosphatase 71 (39-117) U/L Total Protein 7.0 (6.5-8.0) g/dL Albumin 4.4 (3.5-5.0) g/dL ABG Data Attestation ABG: I personally reviewed and interpreted this ABG as follows: Independent Interpretation I performed an independent interpretation of an: Ultrasound Radiology Impression Discussion of test interpretation with radiology: I have reviewed the radiologist's reading. Independent Historian Clinical information obtained from an independent historian. History obtained from or confirmed by: Other (patient) Prescription Management I considered prescription management with: Pain Medication and Antibiotic Discharge Plan Discharge Clinical Impression: Abscess, Cellulitis Patient Disposition: Home, Self-Care Instructions: Cellulitis (ED), Abscess (ED), Warm Compress or Soak (ED) Additional Instructions: Recommend follow-up with primary care provider and breast surgeon. Presently no indication for incision or drainage. Recommend warm compress 4 times a day for 15 minutes on area. Return to the ED immediately for any increased swelling, redness, mass, pus discharge, foul odor, no charge, nipple discharge, fever, chills, or any other concerning symptoms. Ordering Physician: Zay Frausto Date of Service: 09/22/25 Procedure(s): US breast LT complete Accession Number(s): [id number] cc: Zay Frausto~ Reason for Exam: redness, mass, swelling, at 8:00 clock position EXAMINATION: US DIAGNOSTIC ULTRASOUND BREAST, LEFT CLINICAL INFORMATION: Rule out abscess. Redness and swelling left breast 7-9:00 axis, approximately 8 cm from the nipple. COMPARISON: None relevant. TECHNIQUE: Grayscale and color Doppler ultrasound imaging of the LEFT breast was performed in the region of concern spanning the 7-9 o'clock axis, approximately 8 cm from the nipple, in the region of redness and swelling. FINDINGS: There is dermal thickening. Within the thickened dermis, there is an oval fluid collection with surrounding hyperemia on color Doppler imaging, measuring 1.5 x 0.6 x 1.3 cm. This correlates with the region of redness and swelling. This is consistent with a small intradermal abscess. US/US breast LT complete IMPRESSION: Small intradermal abscess measuring 1.5 x 0.6 x 1.3 cm in the left breast, 7-9:00 axis, 8 cm from the nipple. ASSESSMENT: Category 2: Benign RECOMMENDATION: Clinical management. Electronically signed by: Terry Lee MD 09/22/2025 12:49 PM [facility] [place] Prescriptions: New cephalexin 500 mg capsule 500 mg PO QID 7 Days Qty: 28 0RF doxycycline hyclate 100 mg capsule 100 mg PO BID Qty: 14 0RF naproxen 500 mg tablet 500 mg PO BID PRN (Reason: pain) Qty: 14 0RF Referrals: [facility] General Surgeons [Provider Group, General Surgery] - 2 days Referral Note: Left breast abscess Clinical Impression: Abscess; Cellulitis Stand Alone Forms: Work/School Release Interventions: ED Discharge Assessment Last Done: 09/22/25 13:57 Discharge Date/Time: 09/22/25 13:58 Print Language: Syriac
[2025-09-22 11:57] LABS: MANUAL DIFF FLAG NO
[2025-09-22 11:59] LABS: Hematocrit 36.8 % (37.0-47.0); Hemoglobin 11.9 g/dl (12.0-16.0); Imm Gran Abs Auto 0.03 X10*3/uL (0.00-0.03); Imm Gran Pct Auto 0.3 % (0.0-0.4); Lymphocytes Absolute Auto 2.9 X10*3/uL (1.2-4.9); Mean Corpuscular HGB Conc 32.3 g/dl (31.0-35.0); Mean Corpuscular Hemoglobin 24.7 pg (27.0-33.0); Mean Corpuscular Volume 76.3 fL (80.0-98.0); NRBC Abs Auto 0.000 X10*3/uL (0.0-0.012); NRBC Pct Auto 0.0 /100WBC (0.0-0.2); Platelet Count 406 X10*3/uL (160-400); Red Blood Count 4.82 X10*6/uL (4.20-5.50); White Blood Count 11.0 X10*3/uL (4.8-10.8)
[2025-09-22 12:24] LABS: Alanine Aminotransferase 40 U/L (0-31); Albumin Level 4.4 g/dL (3.5-5.0); Alkaline Phosphatase 71 U/L (39-117); Anion Gap 11 (12-20); Aspartate Amino Transferase 25 U/L (5-31); Blood Urea Nitrogen 10 mg/dL (9-16); Calcium 9.5 mg/dL (8.4-10.2); Carbon Dioxide 28 mmol/L (22-29); Chloride 108 mmol/L (96-108); Creatinine Clr Calc Pharmacy 161.4; Estimated Glomerular Filt Rate > 60; Potassium 3.7 mmol/L (3.3-5.1); Sodium 143 mmol/L (135-145); Total Protein 7.0 g/dL (6.5-8.0)
[2025-09-22 13:27] VITALS: BP 134/68; PULSE 86; RESP 18; TEMP 37.1; O2SAT 99
[2025-09-22 13:57] VITALS: BP 134/68; PULSE 86; RESP 18; TEMP 37.1; O2SAT 99
== END 2025-09-22 13:58 | disposition home or self-care (01) ==
LOC: HO.ED 13:47
PROVIDERS: Physician Assistant; Emergency Provider Emergency Medicine Emergency Medical Services
DX: N61.1 Abscess of the breast and nipple (principal)
CPT/HCPCS: 36415; 76641; 80053; 85025; 99282; 99284

== ENCOUNTER → 2025-09-22 11:24 | Outpatient (BNV) | payer OTHER, SELFPAY | PROVIDERS: Visit Provider Radiology Diagnostic Radiology | DX: N63.25 Unspecified lump in the left breast, overlapping quadrants (principal) | CPT/HCPCS: 76641 ==